=== PATIENT | male | born 1975 | race Hispanic/Latino ===

== ENCOUNTER → 2023-04-04 | Outpatient (CLI) | payer OTHER | END | disposition home or self-care (01) | LOC: RAH 13:43 | PROVIDERS: ATTEND Nurse Practitioner | DX: S46.212A Strain of muscle, fascia and tendon of other parts of biceps, left arm, initial encounter (principal); X58.XXXA Exposure to other specified factors, initial encounter; Y93.89 Activity, other specified; Y92.89 Other specified places as the place of occurrence of the external cause; Y99.8 Other external cause status | CPT/HCPCS: 73221 ==